=== PATIENT | male | born 1970 | race American Indian/Alaskan Native ===

== ENCOUNTER 2019-08-31 06:35 | Emergency (ER) | payer BC ==
--- NOTE | 2019-08-31 08:54 | Emergency Department Report ---
ED Headache HPI - General Chief Complaint: Headache Stated Complaint: SUBRAMANIAN Time Seen by Provider: 08/31/19 08:40 - History of Present Illness Initial Comments: Patient is 49 years old male with no significant past medical history. Patient presented to the ER complaining of headache, mainly frontal with no radiation. Patient also stated that he has been having some runny nose and congestion for the last 3 days. Patient denied any fever or chills. No neck pain or weakness numbness or tingling sensation. Timing/Duration: 24 hours Quality: moderate Head Injury Location: frontal Recent Head Trauma: no recent headache/trauma Allergies/Adverse Reactions: Allergies No Known Allergies Allergy (Verified 08/31/19 06:44) ED Review of Systems ROS: Stated complaint: SUBRAMANIAN Other details as noted in HPI Comment: All other systems reviewed and negative Constitutional: denies: chills, fever ENT: congestion Respiratory: denies: cough, shortness of breath, SOB with exertion Cardiovascular: denies: chest pain, palpitations Gastrointestinal: denies: abdominal pain, nausea, vomiting, diarrhea, constipation, hematemesis, melena, hematochezia Musculoskeletal: denies: back pain Neurological: headache. denies: weakness, numbness, paresthesias, confusion, abnormal gait ED Past Medical Hx - Past Medical History Previous Medical History?: No - Surgical History Past Surgical History?: Yes Additional Surgical History: left finger - Social History Smoking Status: Never Smoker Substance Use Type: None ED Physical Exam - General Limitations: No Limitations General appearance: alert, in no apparent distress - Head Head exam: Present: atraumatic - Eye Eye exam: Present: normal appearance, PERRL - ENT ENT exam: Present: mucous membranes moist, other (Right frontal sinus and ethmoid tenderness) - Neck Neck exam: Present: normal inspection, full ROM. Absent: tenderness, meningismus, lymphadenopathy, thyromegaly - Respiratory Respiratory exam: Present: normal lung sounds bilaterally - Cardiovascular Cardiovascular Exam: Present: regular rate, normal rhythm, normal heart sounds - GI/Abdominal GI/Abdominal exam: Present: soft, normal bowel sounds. Absent: distended, tenderness, guarding, rebound, rigid, organomegaly, mass, bruit, pulsatile mass, hernia - Extremities Exam Extremities exam: Present: normal inspection, full ROM, normal capillary refill. Absent: tenderness, pedal edema, calf tenderness - Back Exam Back exam: Present: normal inspection, full ROM. Absent: CVA tenderness (R), CVA tenderness (L), muscle spasm, paraspinal tenderness - Neurological Exam Neurological exam: Present: alert, oriented X3, CN II-XII intact, normal gait, reflexes normal - Psychiatric Psychiatric exam: Present: normal mood - Skin Skin exam: Present: warm, intact, normal color ED Course Vital Signs 08/31/19 08/31/19 08/31/19 06:40 08:38 09:00 Temperature 98.4 F Pulse Rate 91 H 75 69 Respiratory 18 18 Rate Blood Pressure 147/103 Blood Pressure 146/91 146/85 [Left] O2 Sat by Pulse 99 97 Oximetry ED Medical Decision Making - Radiology Data Radiology results: report reviewed - Medical Decision Making Patient is 49 years old male with no significant past medical history. Patient presented to the ER complaining of headache, mainly frontal with no radiation. Patient also stated that he has been having some runny nose and congestion for the last 3 days. Patient denied any fever or chills. No neck pain or weakness numbness or tingling sensation. CT brain showed significant sinusitis on the right side. Patient given Decadron IM in the emergency room and prescription for Flonase and Augmentin and advised to follow-up with his primary care physician in the next 2 to 3 days and to return to the ER if he develop any new symptoms. Critical care attestation.: If time is entered above; I have spent that time in minutes in the direct care of this critically ill patient, excluding procedure time. ED Disposition Clinical Impression: Headache, Sinusitis Disposition: - TO HOME OR SELFCARE Is pt being admited?: No Condition: Stable Instructions: Acute Headache (ED), Acute Bacterial Rhinosinusitis (ED) Referrals: MIKAELA SIMON MD [Primary Care Provider] - 3-5 Days
[2019-08-31 09:17] VITALS: BP 146/85
--- NOTE | 2019-08-31 09:31 | Cat Scan Report ---
CT HEAD WITHOUT CONTRAST INDICATION / CLINICAL INFORMATION: headache. TECHNIQUE: All CT scans at this location are performed using CT dose reduction for ALARA by means of automated e xposure control. COMPARISON: None available. FINDINGS: HEMORRHAGE: No evidence of intracranial hemorrhage or extra-axial fluid collection. EXTRA-AXIAL SPACES: Cortical sulci, sylvian fissures and basilar cisterns have an unremarkable appear ance. VENTRICULAR SYSTEM: The ventricular system is of normal size and configuration. CEREBRAL PARENCHYMA: No areas of abnormal brain parenchymal attenuation are identified. There is no i ndication of recent infarction. MIDLINE SHIFT OR HERNIATION: There is no mass effect. CEREBELLUM / BRAINSTEM: Brainstem and cerebellum have an unremarkable appearance. MIDLINE STRUCTURES:No abnormalities of the pituitary gland or pineal region are identified. INTRACRANIAL VESSELS:No abnormalities are identified on this noncontrast head CT. ORBITS: visualized portions of the orbits have an unremarkable appearance. SOFT TISSUES of HEAD: No significant abnormality. CALVARIUM: Evaluation of bone windows reveals no abnormalities. PARANASAL SINUSES / MASTOID AIR CELLS: Opacification of the right maxillary sinus is noted. There is also opacification of multiple anterior, mid and posterior ethmoid air cells. Mucosal disease is pres ent in the right frontal sinus where a small air-fluid level is identified. There is an absence of ae ration along the course of the air passageways of the right OM U including the right hiatus semilunar is and right middle meatus. Note is made of left-sided alysha bullosa which narrows the air passagewa ys of the left middle meatus. The left-sided paranasal sinuses are free from disease. Mastoid air gini ls and middle ear cavities are normally pneumatized. IMPRESSION: 1. No acute intracranial abnormality. 2. Obstruction of the air passageways of the OM U on the right with resultant sinus inflammatory dise ase in the right maxillary, ethmoid and frontal sinuses. Signer Name: Jose David Ceballos MD Signed: 08/31/2019 9:27 AM Workstation Name: [id number]
[2019-08-31] MEDS ORDERED: dexAMETHasone 20 MG/5 ML VIAL IM ONE (09:45)
== END 2019-08-31 10:24 | disposition home or self-care (01) ==
LOC: ED 06:35
DX: J32.9 Chronic sinusitis, unspecified (principal); R51 Headache
CPT/HCPCS: 70450; 96372; 99283; J1100

== ENCOUNTER 2020-07-22 20:08 | Emergency (ER) | payer BC ==
[2020-07-22 20:30] VITALS: BP 154/96
--- NOTE | 2020-07-22 20:45 | Emergency Department Report ---
ED Extremity Problem HPI - General Chief complaint: Extremity Problem,Nontraumatic Stated complaint: BILATERAL KNEE PAIN Time Seen by Provider: 07/22/20 20:35 Source: patient Mode of arrival: Ambulatory Limitations: Physical Limitation - History of Present Illness Initial comments: 50-year-old male presents to the ER today with complaints of left knee pain. Patient states that he has been having pain to his left knee off and on for a few years. He states that the first time he started having knee pain was after an injury but since then he has been having flareups. He has never been seen by an orthopedic designer for his knee pain. He states that this time around his knee pain flared up about 2 days ago. He reports associated swelling. He reports difficulty ambulating due to the pain. He denies any injuries recently but states that he does do a lot of going in and out of [employer] for work. He states that he was told once by a wealth management advisor about 2 years ago that he had a "touch" of gout but has never had gout to his knee. He reports no apparent bruising, redness, fever or chills or any other symptoms at this time. MD Complaint: joint swelling, joint paint -: Gradual, days(s) (3) Location: knee Severity scale (0 -10): 3 - Related Data Previous Rx's Medication Instructions Recorded Last Taken Type Amoxicillin/Potassium Clav 1 each PO BID #20 tablet 08/31/19 Unknown Rx [Augmentin 875-125 Tablet] Fluticasone [Flonase] 1 spray NS QDAY #1 bottle 08/31/19 Unknown Rx Acetaminophen/Codeine [Tylenol 1 tab PO Q4HR PRN #12 tablet 07/22/20 Unknown Rx /Codeine # 3 tab] Ibuprofen [Motrin] 800 mg PO Q8HR PRN #30 tablet 07/22/20 Unknown Rx methylPREDNISolone [Medrol 4MG 4 mg PO DAILY #1 tab.ds.pk 07/22/20 Unknown Rx DOSEPAK (21 tabs)] Allergies Allergy/AdvReac Type Severity Reaction Status Date / Time No Known Allergies Allergy Verified 08/31/19 06:44 ED Review of Systems ROS: Stated complaint: BILATERAL KNEE PAIN Other details as noted in HPI Comment: All other systems reviewed and negative Constitutional: denies: chills, fever ENT: denies: ear pain, throat pain Respiratory: denies: cough, shortness of breath, SOB with exertion, SOB at rest, wheezing Gastrointestinal: denies: abdominal pain, nausea, diarrhea, constipation Genitourinary: denies: urgency, dysuria, frequency, hematuria, discharge, testicular pain, testicular mass Musculoskeletal: joint swelling, arthralgia Skin: denies: rash, lesions Neurological: abnormal gait. denies: headache, weakness, numbness, paresthesias, confusion Psychiatric: denies: anxiety, depression, auditory hallucinations, visual hallucinations, homicidal thoughts, suicidal thoughts Hematological/Lymphatic: denies: easy bleeding, easy bruising ED Past Medical Hx - Past Medical History Previous Medical History?: No - Surgical History Past Surgical History?: No Additional Surgical History: left finger - Social History Smoking Status: Never Smoker Substance Use Type: None - Medications Home Medications: Home Medications Medication Instructions Recorded Confirmed Last Taken Type Amoxicillin/Potassium Clav 1 each PO BID #20 tablet 08/31/19 Unknown Rx [Augmentin 875-125 Tablet] Fluticasone [Flonase] 1 spray NS QDAY #1 bottle 08/31/19 Unknown Rx Acetaminophen/Codeine [Tylenol 1 tab PO Q4HR PRN #12 tablet 07/22/20 Unknown Rx /Codeine # 3 tab] Ibuprofen [Motrin] 800 mg PO Q8HR PRN #30 tablet 07/22/20 Unknown Rx methylPREDNISolone [Medrol 4MG 4 mg PO DAILY #1 tab.ds.pk 07/22/20 Unknown Rx DOSEPAK (21 tabs)] ED Physical Exam - General Limitations: Physical Limitation General appearance: alert, in no apparent distress - Head Head exam: Present: atraumatic, normocephalic, normal inspection - Eye Eye exam: Present: normal appearance, PERRL, EOMI Pupils: Present: normal accommodation - Neck Neck exam: Present: normal inspection, full ROM - Respiratory Respiratory exam: Present: normal lung sounds bilaterally. Absent: respiratory distress - Cardiovascular Cardiovascular Exam: Present: regular rate - Expanded Lower Extremity Exam Left Knee exam: Present: full ROM (He does have full flexion extension but it is painful), tenderness (Exquisite tenderness to palpation to the anterior aspect of the knee), swelling (Mild to moderate swelling mainly to the anterior aspect of the knee), effusion. Absent: abrasion, laceration, ecchymosis, deformity, crepidus, dislocation, erythema Neuro vascular tendon exam: Present: no vascular compromise Gait: Positive: observed and limited by pain (Patient has a mild limping gait secondary to his left knee pain) - Neurological Exam Neurological exam: Present: alert, oriented X3, CN II-XII intact. Absent: motor sensory deficit - Psychiatric Psychiatric exam: Present: normal affect, normal mood - Skin Skin exam: Present: intact ED Course Vital Signs 07/22/20 20:30 Temperature 98.2 F Pulse Rate 83 Respiratory 19 Rate Blood Pressure 154/96 [Right] O2 Sat by Pulse 97 Oximetry ED Medical Decision Making - Medical Decision Making 2058: Patient knee pain may be related to gout or arthritis at this time. No evidence of septic joint, cellulitis, DVT, acute arterial occlusion or any other emergent conditions at this time. Discussed suspected diagnosis and treatment plan with patient. Recommend close follow-up with orthopedic designer. Patient expressed understanding of instructions and agree with plan. Patient was stable at time of discharge. Critical care attestation.: If time is entered above; I have spent that time in minutes in the direct care of this critically ill patient, excluding procedure time. ED Disposition Clinical Impression: Knee pain, left, Gout Disposition: DC-01 TO HOME OR SELFCARE Is pt being admited?: No Does the pt Need Aspirin: No Condition: Stable Instructions: Acute Knee Pain, Adult, Low-Purine Eating Plan Additional Instructions: Take the motrin, medrol dose pack and tylenol 3 as prescribed. Rest, and elevate knee as often as possible. Follow up with Research Laboratory Manager as discussed. Return to ED if worse Prescriptions: methylPREDNISolone [Medrol 4MG DOSEPAK (21 tabs)] 4 mg PO DAILY #1 tab.ds.pk Ibuprofen [Motrin] 800 mg PO Q8HR PRN #30 tablet PRN Reason: pain Acetaminophen/Codeine [Tylenol /Codeine # 3 tab] 1 tab PO Q4HR PRN #12 tablet PRN Reason: Pain Referrals: CIARAN MAYERS MD [Staff Physician] - 7-10 days (Research Laboratory Manager) Forms: Work/School Release Form(ED) Time of Disposition: 20:46
== END 2020-07-22 23:00 | disposition home or self-care (01) ==
LOC: ED 20:08
DX: M10.062 Idiopathic gout, left knee (principal); Z98.890 Other specified postprocedural states; Z79.1 Long term (current) use of non-steroidal anti-inflammatories (NSAID); Z79.2 Long term (current) use of antibiotics; Z79.899 Other long term (current) drug therapy
CPT/HCPCS: 99281